=== PATIENT | female | born 1955 | race African-American/Black ===

== ENCOUNTER 2016-12-07 16:49 | Emergency (ER) | payer MEDICAID ==
[~2016-12-07] VITALS: Ht 160 cm; Wt 72.1 kg
[2016-12-07 16:59] VITALS: BP 179/102
[2016-12-07 18:07] LABS: Basophils # (auto) 0.1 uL; Basophils % (auto) 0.8 % (0.0-2.0); Eosinophils # (auto) 0 uL; Eosinophils % (auto) 0.5 % (0.0-7.0); Hematocrit 41.9 % (36.0-46.0); Hemoglobin 14.2 g/dL (12.2-16.2); Lymphocytes # (auto) 4.1 uL; Mean Corpuscular Hemoglobin 30.9 pg (28.0-32.0); Mean Corpuscular Hgb Conc. 33.9 g/dL (32.0-36.0); Mean Corpuscular Volume 91.1 fL (80.0-100.0); Mean Platelet Volume 8.6 fL (6.9-10.8); Monocytes # (auto) 0.5 uL; Monocytes % (auto) 7.5 % (0.0-12.0); Neutrophils # (auto) 2.4 uL; Neutrophils % (auto) 33.7 % (37.0-80.0); Nucleated Red Blood Cells % 0.5 %; Platelet Count (auto) 77 10^3/uL (140-450); Red Cell Distribution Width 13.8 % (11.8-14.3); White Blood Cell 7.2 10^3/uL (4.4-10.8)
[2016-12-07 18:14] LABS: Lymphocytes % (auto) 57.5 % (10.0-50.0)
[2016-12-07 18:23] LABS: Albumin 3.4 g/dL (3.4-5.0); Alkaline Phosphatase 92 U/L (45-117); Anion Gap 9 (5-15); Aspartate Aminotransferase 175 U/L (15-37); BUN/Creatinine Ratio 15.6; Bilirubin, Total 0.6 mg/dL (0.2-1.0); Blood Urea Nitrogen 17 mg/dL (7-18); Calcium 8.6 mg/dL (8.5-10.1); Carbon Dioxide 24 mmol/L (21-32); Chloride 102 mmol/L (98-107); GFR African American 66 mL/min; GFR Non-African American 54 mL/min; Glucose 196 mg/dL (74-106); Magnesium 2.4 mg/dL (1.6-2.6); Potassium 4.2 mmol/L (3.5-5.1); Sodium 135 mmol/L (136-145)
[2016-12-07 21:04] LABS: Anisocytosis Moderate; Platelet Estimate Decreased
== END 2016-12-07 21:47 | disposition left against medical advice (07) ==
LOC: ER 16:52
DX: R51 Headache (principal); Z53.21 Procedure and treatment not carried out due to patient leaving prior to being seen by health care provider; W19.XXXA Unspecified fall, initial encounter; Y93.89 Activity, other specified; Y99.8 Other external cause status; Y92.89 Other specified places as the place of occurrence of the external cause
CPT/HCPCS: 36415; 71010; 80053; 83735; 84484; 85025; 93005

== ENCOUNTER 2017-02-15 22:07 | Emergency (ER) | payer MEDICAID ==
[~2017-02-15] VITALS: Ht 157.5 cm; Wt 62.6 kg
[2017-02-15 22:52] VITALS: BP 131/73
[2017-02-16] MEDS ORDERED: cefTRIAXone SOD 1,000 MG VL ONE (01:37)
[2017-02-16] MEDS ORDERED: cefTRIAXone SOD 1,000 MG VL IM ONE (01:45)
== END 2017-02-16 01:52 | disposition home or self-care (01) ==
LOC: ER 22:07
DX: J40 Bronchitis, not specified as acute or chronic (principal); I50.9 Heart failure, unspecified
CPT/HCPCS: 71020; 96372; 99284; J0696